=== PATIENT | female | born 1995 | race Caucasian/White ===

== ENCOUNTER 2019-05-27 03:25 | Emergency (ER) | payer OTHER ==
[~2019-05-27] VITALS: Ht 165.1 cm; Wt 49.9 kg
[2019-05-27 03:37] VITALS: BP 102/61
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
[2019-05-27 04:45] VITALS: BP 114/74
== END 2019-05-27 04:45 | disposition home or self-care (01) ==
LOC: EDBD 03:25 → EMR 03:49
DX: F10.920 Alcohol use, unspecified with intoxication, uncomplicated (principal)
CPT/HCPCS: 99282